=== PATIENT | female | born 1955 | race Caucasian/White ===

== ENCOUNTER 2019-06-10 07:50 | Outpatient (CLI) | payer BC, SELFPAY ==
--- NOTE | ~2019-06-10 | MM_ITS ---
EXAMINATION: MM scrn claribel implant BI w kunal HISTORY: Screening mammogram TECHNIQUE: Craniocaudal and mediolateral oblique 3-D tomosynthesis images with implant displacement a nd synthetic 2-D images were generated. Craniocaudal and mediolateral oblique views of the breasts wi thout implant displacement were obtained using full field digital mammography. CAD analysis was submi tted and interpreted. COMPARISON: 02/05/2016, 01/24/2012, 02/10/2009 BREAST PARENCHYMAL COMPOSITION: The breasts are almost entirely fatty. FINDINGS: There is no evidence of suspicious mass, calcification, or architectural distortion to sugg est malignancy in either breast. There has been no suspicious interval change. IMPRESSION: 1. No mammographic evidence of malignancy. 2. Recommend routine screening mammography in one year. BI-RADS Category 1: Negative Reviewed, dictated and finalized at location A.
--- NOTE | ~2019-06-10 | DEXA_ITS ---
BMD(1) Young-Adult(2) Age-Matched(3) Region (g/cm2) T-score Z-score WHO Classification L1 1.436 2.4 3.4 Normal L2 1.461 2.1 3.0 Normal L3 1.399 1.5 2.4 Normal L4 1.375 1.2 2.2 Normal L1-L4 1.412 1.8 2.7 Normal L2-L4 1.406 1.5 2.5 Normal Trend: L2-L4 Change vs Change vs Measured Age BMD(1) Baseline Previous Date (years) (g/cm2) (%) (%) 06/10/2019 [age] 1.406 baseline - 1 - Statistically 68% of repeat scans fall within 1SD (+- 0.010 g/cm2 for AP Spine L2-L4) 2 - [place] (Combined NHANES (ages 20-30) / Access [place] (ages 20-40)) AP Spine Reference Population (v112) 3 - Matched for Age, Weight (females 25-100 kg), Ethnic 11 - World Health Organization - Definition of Osteoporosis and Osteopenia for Women: Normal = T-score at or above -1.0 SD; Osteopenia = T-score between -1.0 and -2.5 SD; Osteoporosis = T-score at or below -2.5 SD; (WHO definitions only apply when a young healthy Women reference database is used to determine T-scores.) Printed: 06/10/2019 11:15:23 AM (13.60)76:3.00:50.00:12.0 0.00:10.08 0.60x1.05 24.1:%Fat=48.7% 0.00:0.00 0.00:0.00 Filename: [id number] Scan Mode: Standard;OneScan 37.0 [employer] [id number] BMD(1) Young-Adult(2,7) Age-Matched(3) Region (g/cm2) T-score Z-score WHO Classification Neck Left 1.006 -0.2 0.8 Normal Right 1.011 -0.2 0.9 Normal Mean 1.009 -0.2 0.8 Normal Difference 0.005 0.0 0.0 - Total Left 1.003 0.0 0.7 Normal Right 1.005 0.0 0.7 Normal Mean 1.004 0.0 0.7 Normal Difference 0.002 0.0 0.0 - Hip Tornado Length Comparison (mm) (Right = 115.5 mm) (Mean = 108.4 mm) (Left = 116.5 mm) Trend: Total Mean Change vs Change vs Measured Age BMD(1) Baseline Previous Date (years) (g/cm2) (%) (%) 06/10/2019 64.0 1.004 baseline - 1 - Statistically 68% of repeat scans fall within 1SD (+- 0.010 g/cm2 for DualFemur Total) 2 - [place] (Combined NHANES (ages 20-30) / Access [place] (ages 20-40)) Femur Reference Population (v112) 3 - Matched for Age, Weight (females 25-100 kg), Ethnic 7 - DualFemur Total T-score difference is 0.0. Asymmetry is None. 11 - World Health Organization - Definition of Osteoporosis and Osteopenia for Women: Normal = T-score at or above -1.0 SD; Osteopenia = T-score between -1.0 and -2.5 SD; Osteoporosis = T-score at or below -2.5 SD; (WHO definitions only apply when a young healthy Women reference database is used to determine T-scores.) Printed: 06/10/2019 11:15:23 AM (13.60); Filename: [id number]; Right Femur; 18.6:%Fat=31.4%; Neck Angle (deg)= 50; Scan Mode: Standard 37.0 uGy; Left Femur; 19.0:%Fat=28.4%; Neck Angle (deg)= 50; Scan Mode: Standard 37.0 uGy CompleteSet [id number] Dear Sharlene Quintana, Your patient Alessandra Mclean completed a BMD test on 06/10/2019 using the CompleteSet DXA System (analysis version: 13.60) manufactured by [employer]. The following summarizes the results of our evaluation. PATIENT BIOGRAPHICAL: Name: Alessandra Mclean Date: 1955 Height: 66.5 in. Gender: Female
== END 2019-06-10 07:51 | disposition home or self-care (01) ==
PROVIDERS: PCP Internal Medicine; Visit Provider Nurse Practitioner Family
DX: Z12.31 Encounter for screening mammogram for malignant neoplasm of breast (principal); Z78.0 Asymptomatic menopausal state; E55.9 Vitamin D deficiency, unspecified
CPT/HCPCS: 77063; 77067; 77080

== ENCOUNTER 2021-09-04 07:14 | Outpatient (CLI) | payer BC, SELFPAY ==
--- NOTE | ~2021-09-04 | MMUS_ITS ---
EXAMINATION: MM diag claribel implant BI w kunal, US breast RT limited HISTORY: Right breast pain TECHNIQUE: Craniocaudal, mediolateral, and mediolateral oblique 3-D tomosynthesis images with implant displacement of the breasts were performed and synthetic 2-D images were generated. Craniocaudal, m ediolateral oblique, and mediolateral views of the breasts without implant displacement were obtained using full field digital mammography. CAD analysis was submitted and interpreted. High resolution li mited right breast ultrasound was performed. COMPARISON: 06/10/2019, 02/05/2016 BREAST PARENCHYMAL COMPOSITION: The breasts are almost entirely fatty. FINDINGS: MAMMOGRAPHIC FINDINGS: There is no suspicious mass, calcification, or architectural distortion in either breast to suggest malignancy. There has been no suspicious interval change. No mammographic correlate is identified for the patient's reported right breast pain ULTRASOUND: There is no evidence of focal abnormal solid or cystic lesion in the vicinity of the patient's right breast pain. There appears to be intracapsular rupture of the right breast implant. IMPRESSION: 1. No specific mammographic or sonographic correlate is identified for the reported palpable abnormal ity of concern. Further evaluation at this time should be based on clinical assessment. Continued fol low-up physical examination is recommended. 2. Recommend routine screening mammography in one year. BI-RADS Category 1: Negative Reviewed, dictated and finalized at location A. IMPRESSION: 1. No specific mammographic or sonographic correlate is identified for the repo rted palpable abnormality of concern. Further evaluation at this time should be based on clinical assessment. Continued follow-up physical examination is yissel mmended. 2. Recommend routine screening mammography in one year. BI-RADS Category 1: Negative
== END 2021-09-04 07:15 | disposition home or self-care (01) ==
PROVIDERS: PCP Internal Medicine; Visit Provider Nurse Practitioner Obstetrics & Gynecology
DX: N63.0 Unspecified lump in unspecified breast (principal); T85.49XA Other mechanical complication of breast prosthesis and implant, initial encounter; N64.4 Mastodynia
CPT/HCPCS: 76642; 77062; 77066; G0279

== ENCOUNTER 2021-09-27 01:30 | Day surgery (SDC) | payer BC, SELFPAY ==
[2021-09-05 14:25] VITALS: BMI 27.2
--- NOTE | 2021-09-26 18:56 | WPDANESEPPF ---
Anes - Initial Pre Proc Eval Procedure: Operation Date: 09/27/21 08:00 Proposed Procedures p Screening Colonoscopy - Ibrahima Champion DO Date/Time: 09/26/21 18:56 Surgeon: Ibrahima Champion DO Pre Op Diagnosis: neoplasm screening Patient Data Age: 66 Gender: F Height: 1.7 m Weight: 79 kg Allergies Allergy/AdvReac Type Severity Reaction Status Date / Time No Known Allergies Allergy Unverified 09/27/21 06:41 Home Medications Medication Instructions Recorded Confirmed Type atorvastatin 40 mg tablet 40 mg PO DAILY 09/05/21 09/27/21 History lisinopril 20 mg tablet 20 mg PO DAILY 09/05/21 09/27/21 History pantoprazole 40 mg tablet,delayed 40 mg PO DAILY 09/05/21 09/27/21 History release venlafaxine 37.5 mg 37.5 mg PO DAILY 09/05/21 09/27/21 History capsule,extended release 24 hr Patient hx anesthesia problems: none Family hx anesthesia problems: none Results Review: All pre-operative results and documents have been reviewed as part of the pre-operative evaluation. [facility] Past Medical History Medical History (Updated 09/26/21 @ 18:56 by Jordy Perez DO) Anxiety GERD (gastroesophageal reflux disease) Hyperlipidemia Hypertension Family History Family History (Updated 07/31/17 @ 09:13 by DOCTOR UNKNOWN) Other Cerebrovascular accident Diabetes mellitus Family history of cardiovascular disease Family history of malignant neoplasm Social History Social History Smoking status: Never smoker Alcohol intake: never Substance use: never Substance use type: does not use Living arrangements: with family Spiritual care concerns: No Anes - Eval Final PreProcedure Day of Procedure 09/26/21 18:56 Patient weight: overweight Heart: regular rate and rhythm Lungs: clear to auscultation Airway: Mallampati scale class II Neurological: alert and oriented Last oral intake: >/= 8 hours ASA classification: II Emergent: no Anesthetic plan: proceed Anesthesia type and monitoring: general GIVS and standard monitoring Results Review: All pre-operative results and documents have been reviewed as part of the pre-operative evaluation. Informed Consent: The patient's anesthetic plan and its attendant risks and benefits were discussed with the patient/family/POA. Questions were solicited and answers provided to the satisfaction of the patient/family/POA.
[2021-09-27 06:42] VITALS: BP 115/64; PULSE 72; RESP 16; TEMP 36.7; O2SAT 98
[2021-09-27] MEDS: LACTATED RINGERS 1,000 ML 150 ML IV CONT (06:43)
--- NOTE | 2021-09-27 07:43 | PM.IMHP ---
H&P: HPI History of Present Illness Date/Time: 09/27/21 07:43 Chief Complaint: screening for colorectal cancer Narrative: this is a 66-year-old woman who presents for colonoscopy. Her last colonoscopy was about 10 years ago. She does not recall that any polyps were removed. She denies any hematochezia or melena. She denies any family history of colon cancer. Review of Systems Review of Systems: All systems reviewed & are unremarkable except as noted in HPI and below Constitutional: Constitutional: Denies chills, Denies fever(s), Denies headache(s) and Denies weight loss Eyes: Eyes: Denies change in vision ENT: Denies dizziness, Denies headache(s), Denies neck mass and Denies throat swelling Cardiovascular: Cardiovascular: Denies chest pain, Denies lightheadedness and Denies dyspnea Respiratory: Respiratory: Denies cough, Denies dyspnea and Denies wheezing Gastrointestinal: Gastrointestinal: Denies abdominal pain, Denies change in bowel habits, Denies nausea and Denies vomiting Genitourinary: Genitourinary: Denies hematuria and Denies dysuria Musculoskeletal: Musculoskeletal: Reports as per HPI Integumentary/Breasts: Skin/Breast: Reports as per HPI Neurologic: Denies dizziness and Denies headache(s) Allergic/Immunologic: Allergic/Immunologic: Denies throat swelling and Denies wheezing [facility] Past Medical History Medical History (Updated 09/27/21 @ 07:44 by Ibrahima Champion DO) Anxiety GERD (gastroesophageal reflux disease) Hyperlipidemia Hypertension Family History Family History (Updated 07/31/17 @ 09:13 by DOCTOR UNKNOWN) Other Cerebrovascular accident Diabetes mellitus Family history of cardiovascular disease Family history of malignant neoplasm Social History Social History Smoking status: Never smoker Alcohol intake: never Substance use: never Substance use type: does not use Living arrangements: with family Spiritual care concerns: No Meds Home Medications and Allergies Home Medications Medication Instructions Recorded Confirmed Type atorvastatin 40 mg tablet 40 mg PO DAILY 09/05/21 09/27/21 History lisinopril 20 mg tablet 20 mg PO DAILY 09/05/21 09/27/21 History pantoprazole 40 mg tablet,delayed 40 mg PO DAILY 09/05/21 09/27/21 History release venlafaxine 37.5 mg 37.5 mg PO DAILY 09/05/21 09/27/21 History capsule,extended release 24 hr Allergies Allergy/AdvReac Type Severity Reaction Status Date / Time No Known Allergies Allergy Unverified 09/27/21 06:41 Vital Signs Vital Signs - 24 hr 09/27/21 06:42 Temperature 36.7 C Pulse Rate 72 Respiratory Rate 16 Blood Pressure 115/64 Pulse Oximetry 98 Oxygen Delivery Room Air Exam Const: General: no acute distress and alert Orientation/consciousness: patient oriented x3 HENMT: Head: normocephalic and atraumatic Ears: hearing grossly normal bilaterally General nose exam: Normal nares present Mouth: Yes Normal oral and palatal mucosa present Eyes: Periorbital: periorbital findings normal Sclera: sclerae normal EOM: EOMs intact bilaterally Neck: Neck: normal visual inspection, no lymphadenopathy and trachea midline Chest: Chest palpation & inspection: normal inspection of the chest Resp: Effort & Inspection: normal respiratory effort Auscultation: clear to auscultation bilaterally Cardio: Jugular venous distension: no JVD Rate: regular rate Rhythm: regular rhythm Heart sounds: S1 normal heart sound present and S2 normal heart sound present Peripheral pulses: Peripheral pulses 2+ throughout GI: Inspection: normal to inspection GI Palp: Yes Soft to palpation, No Tenderness to palpation present (GI), No Guarding due to palpation present (GI) and No Rebound tenderness present Percussion: Yes normal to percussion Auscultation: normal bowel sounds : General: Yes no CVA tenderness Back/Spine/Pelvis: Back: no CVA tenderness Neuro: General: patient oriented x3, no
[2021-09-27 08:13] VITALS: BP 97/60; PULSE 58; RESP 12; O2SAT 99
[2021-09-27 08:23] VITALS: BP 110/83; PULSE 63; RESP 16; O2SAT 99
[2021-09-27 08:33] VITALS: BP 112/70; PULSE 57; RESP 15; O2SAT 99
== END 2021-09-27 08:49 | disposition home or self-care (01) ==
PROVIDERS: PCP Internal Medicine; Visit Provider Surgery
PROC: 0DJD8ZZ Inspection of Lower Intestinal Tract, Via Natural or Artificial Opening Endoscopic (ICD-10-PCS; CPT 45378; principal; 2021-09-27 08:00)
DX: Z12.11 Encounter for screening for malignant neoplasm of colon (principal); K62.1 Rectal polyp; K62.89 Other specified diseases of anus and rectum; F41.9 Anxiety disorder, unspecified; K21.9 Gastro-esophageal reflux disease without esophagitis; I10 Essential (primary) hypertension; E78.5 Hyperlipidemia, unspecified
CPT/HCPCS: 45380; 88305; J2704; J7120

== ENCOUNTER 2022-11-15 15:57 | Emergency (ER) | payer MEDICARE, SELFPAY ==
--- NOTE | ~2022-11-15 | XR_ITS ---
EXAMINATION: XR hand LT min 3V DATE: 11/15/2022 16:43 INDICATION: Left hand pain and multiple lacerations post fall TECHNIQUE: Posteroanterior, oblique and lateral views of the left hand were obtained. COMPARISON: None. FINDINGS: 3 mm ulnar minus variance. Alignment is otherwise normal. Metallic ring obscures portions of the four th proximal phalangeal diaphysis. No fractures. Mild polyarticular osteoarthritis at the distal radio ulnar, triscaphe, first carpometacarpal and multiple interphalangeal joints with distal predominance. Soft tissues are unremarkable. No radiopaque foreign bodies identified. IMPRESSION: 1. 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 No acute osseous abnormality or radi opaque foreign bodies. Reviewed, dictated and finalized at location A. IMPRESSION: 1. 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 No acute osseo us abnormality or radiopaque foreign bodies.
--- NOTE | ~2022-11-15 | CT_ITS ---
EXAMINATION: CT cervical spine wo con DATE: 11/15/2022 16:41 INDICATION: Fall, RIGHT SIDED PAIN RADIATES DOWN RT ARM TECHNIQUE: Computed tomography (CT) of the cervical spine was performed without intravenous contrast. Automated exposure control and iterative reconstruction technique were employed. The dose-length pro duct was 428.68 mGy-cm. COMPARISON: 02/20/2015. FINDINGS: Vertebral Body Alignment: Intact. Minimal reversal of the normal cervical lordosis centered at C5-6. Craniocervical and atlantoaxial alignment: Moderate degenerative change. Alignment intact. Osseous structures/fracture: No evidence of a lytic or blastic process in the visualized spine. No e vidence of acute fracture. Cervical soft tissues: The paraspinal soft tissues planes are maintained. Degenerative changes: Multilevel degenerative disc disease and facet arthropathy. Severe right neural foraminal narrowing at C6-7 secondary to uncovertebral joint hypertrophy. No severe central canal na rrowing. IMPRESSION: No acute fracture or traumatic malalignment in the cervical spine. Reviewed, dictated and finalized at location K.
--- NOTE | ~2022-11-15 | CT_ITS ---
EXAMINATION: CT brain wo con DATE: 11/15/2022 16:40 INDICATION: Fall off single story roof, rt sided pain . TECHNIQUE: Computed tomography (CT) of the head was performed without intravenous contrast. The mA wa s adjusted according to patient size. Iterative reconstruction technique was employed. The dose-lengt h product was 681.00 mGy-cm. COMPARISON: None. FINDINGS: No acute intracranial hemorrhage or extra-axial fluid collection. No hydrocephalus, mass, or herniation. No acute ischemic infarct. Unremarkable dural venous sinus attenuation. No acute osseous abnormality. Right frontal scalp contusion. Small bilateral maxillary retention cysts or polyps, the remaining aerated spaces are clear. Mild atrophy and chronic white matter change. Atherosclerotic intracranial calcification. IMPRESSION: No acute intracranial process. Reviewed, dictated and finalized at location K.
[2022-11-15 16:00] VITALS: BP 130/70; PULSE 65; RESP 18; TEMP 37.1; O2SAT 100
--- NOTE | 2022-11-15 16:01 | ED.FALL ---
HPI - Fall General Chief Complaint: Fall Stated Complaint: Fall/neck pain Time Seen by Provider: 11/15/22 16:01 Source: patient and RN notes reviewed Mode of arrival: ambulatory Limitations: no limitations History of Present Illness HPI Narrative: patient states she was clearing some branches for installation of a satellite dish. She was on the roof and then was getting down off the roof onto the ladder she slipped and fell to the ground onto her left hand then right side. complaint: fall Onset (ago): minute(s) (20) Fall from: from height (distance) (off the roof single story) Fall witnessed: no Place fall occurred: home Loss of consciousness: none Prolonged down time: no Symptoms prior to fall: none Context: tripped/slipped Location of injury: head and neck Location of injury - extremities: Left: hand Severity: moderate Quality: dull and aching Associated symptoms (after fall): neck pain Related Data Home Medications Medication Instructions Recorded Confirmed atorvastatin 40 mg tablet 40 mg PO DAILY 09/05/21 11/15/22 lisinopril 20 mg tablet 20 mg PO DAILY 09/05/21 11/15/22 pantoprazole 40 mg tablet,delayed 40 mg PO DAILY 09/05/21 11/15/22 release venlafaxine 37.5 mg 37.5 mg PO DAILY 09/05/21 11/15/22 capsule,extended release 24 hr Allergies Allergy/AdvReac Type Severity Reaction Status Date / Time No Known Allergies Allergy Unverified 11/15/22 16:14 Review of Systems Review of Systems: All systems reviewed & are unremarkable except as noted in HPI and below ENT: Denies vertigo and Denies dizziness Musculoskeletal: Musculoskeletal: Denies back pain Neurologic: Denies focal weakness, Denies numbness and Denies weakness PMFSH Past Medical History Medical History (Updated 11/15/22 @ 17:04 by Phillip Moya MD) Anxiety GERD (gastroesophageal reflux disease) Hyperlipidemia Hypertension Iron deficiency anemia Family History Family History (Updated 07/31/17 @ 09:13 by DOCTOR UNKNOWN) Other Cerebrovascular accident Diabetes mellitus Family history of cardiovascular disease Family history of malignant neoplasm Social History Social History Smoking status: Never smoker Alcohol intake: never Substance use: never Substance use type: does not use Living arrangements: with family Spiritual care concerns: No Exam Const: General: healthy appearing, no acute distress and alert Nutritional Appearance: well nourished Orientation/consciousness: patient oriented x3 Limitations: no limitations HENMT: Head: contusion right frontal Ears: external ears normal and TM's normal bilaterally Face/Nose/Sinus: Normal external nose present Face and sinus: normal facial exam Mouth: Yes moist mucous membranes Eyes: Conjunctivae: conjunctivae normal Pupils: Equal, round and reactive pupils present EOM: EOMs intact bilaterally Neck: Neck: normal visual inspection Resp: Effort & Inspection: normal respiratory effort Auscultation: clear to auscultation bilaterally Cardio: Rate: regular rate Rhythm: regular rhythm GI: GI Palp: Yes Soft to palpation and No Tenderness to palpation present (GI) Auscultation: normal bowel sounds Skin: General skin exam: normal color and abrasion (right elbow) Neuro: General: patient oriented x3, moves all extremities, no focal motor deficits and CN's II-XI intact bilaterally Speech: normal speech Gait exam (Neuro): Normal gait present Extrem: General: normal exam except as noted and no clubbing, cyanosis or edema Right upper extremity: elbow/forearm normal ROM; no tenderness and no swelling Left upper extremity: hand neuromotor exam normal, neurosensory exam normal and tenderness of the thumb at the thenar eminence, at the MCP joint and at the proximal phalanx Psych: Mental Status: mental status grossly normal Affect: normal affect Attitude: cooperative Course Vital Signs Vital signs:
[2022-11-15 16:57] VITALS: BP 138/72; PULSE 81; RESP 20; O2SAT 100
[2022-11-15 17:20] VITALS: BP 145/74; PULSE 73; RESP 20; TEMP 36.7; O2SAT 99
== END 2022-11-15 17:30 | disposition home or self-care (01) ==
PROVIDERS: Emergency Provider Emergency Medicine; PCP Internal Medicine
DX: S00.03XA Contusion of scalp, initial encounter (principal); S60.222A Contusion of left hand, initial encounter; S16.1XXA Strain of muscle, fascia and tendon at neck level, initial encounter; W13.2XXA Fall from, out of or through roof, initial encounter; I10 Essential (primary) hypertension; E78.5 Hyperlipidemia, unspecified; K21.9 Gastro-esophageal reflux disease without esophagitis; F41.9 Anxiety disorder, unspecified
CPT/HCPCS: 70450; 72125; 73130; 99284; L0150

== ENCOUNTER 2023-01-14 09:33 | Outpatient (CLI) | payer MEDICARE, SELFPAY | END 2023-01-14 09:34 | disposition home or self-care (01) | LOC: CHSLAB 09:43 | PROVIDERS: PCP Internal Medicine; Visit Provider Specialist | DX: C44.311 Basal cell carcinoma of skin of nose (principal) | CPT/HCPCS: 88305 ==

== ENCOUNTER 2024-08-24 12:51 | Outpatient (CLI) | payer MEDICARE, SELFPAY ==
--- NOTE | ~2024-08-24 | MM_ITS ---
EXAMINATION: MM scrn claribel implant BI w kunal HISTORY: Screening mammogram TECHNIQUE: Craniocaudal and mediolateral oblique 3-D tomosynthesis images with implant displacement a nd synthetic 2-D images were generated. Craniocaudal and mediolateral oblique views of the breasts wi thout implant displacement were obtained using full field digital mammography. CAD analysis was submi tted and interpreted. COMPARISON: 06/10/2019 BREAST PARENCHYMAL COMPOSITION: Not dense: There are scattered areas of fibroglandular density. FINDINGS: There is no evidence of suspicious mass, calcification, or architectural distortion to sugg est malignancy in either breast. There has been no suspicious interval change. IMPRESSION: 1. No mammographic evidence of malignancy. 2. Recommend routine screening mammography in one year. BI-RADS Category 1: Negative Reviewed, dictated and finalized at location A.
--- NOTE | ~2024-08-24 | DEXA_ITS ---
Bone Density Report Name: RICHARD ARDON Age: 69 Sex: Female Ethnicity: White Date of : 1955 Indication: postmenopausal; screening for osteoporosis; parental hip fracture; Referring Provider: Jordi Smyth Study: Bone densitometry was performed. Exam Date: August 24, 2024 Accession number: [id number] Bone Density: Region BMD T-score Z-score Classification AP Spine(L1-L4) 1.227 1.6 3.5 Normal Femoral Neck (Left) 0.809 -0.4 1.3 Normal Total Hip (Left) 0.951 0.1 1.4 Normal Femoral Neck (Right) 0.818 -0.3 1.4 Normal Total Hip (Right) 0.942 0.0 1.3 Normal Femoral Neck Mean 0.814 -0.3 1.3 Normal Total Hip Mean 0.946 0.0 1.4 Normal World Health Organization criteria for BMD impression classify patients as: Normal (T-score at or above -1.0), Osteopenia (T-score between -1.0 and -2.5), or Osteoporosis (T-score at or below -2.5). 10-year Fracture Risk: FRAX not reported because: All T-scores for Spine Total, Hip Total, Femoral Neck at or above -1.0 Previous Exams: Region Exam Age BMD T-score BMD Change BMD Change Date g/cm2 vs Baseline vs Previous AP Spine (L1-L4) 08/24/2024 69 1.227 1.6 -0.031 (-2.5%) -0.031 (-2.5%) 06/10/2019 64 1.258 1.9 Total Hip(Left) 08/24/2024 69 0.951 0.1 0.014 (1.5%)# 0.014 (1.5%)# 06/10/2019 64 0.937 0.0 Total Hip(Right) 08/24/2024 69 0.942 0.0 0.003 (0.3%)# 0.003 (0.3%)# 06/10/2019 64 0.939 0.0 *Denotes significance at 95% confidence level, LSC for AP Spine = 0.022 g/cm2, LSC for Total Hip = 0.027 g/cm2 # Denotes dissimilar scan types or analysis methods Clinical Information Provided by Patient: Parent has had a hip fracture Patient maximum height was 67.0 Menopause Age: 52 No regular weight bearing exercise Drinks caffeinated beverages Onset of menses at age 17 Number of children 0 Impression: The patient has normal bone mass. The patient has risk factors, including: parental hip fracture. No significant bone loss was observed. Discussion: BONE DENSITY IS ABOVE THE MINIMUM DESIRABLE LEVEL AT ALL SKELETAL SITES TESTED. This patient?s bone mineral density is above the minimum desirable level (T-score -1.0 or better) at all sites measured. The patient should follow a healthful lifestyle (good nutrition with adequate calcium and vitamin D, and appropriate weight-bearing exercise). Follow-Up: Consider repeating this study in 5 years or sooner if there is some new clinical indication. Reported by: HEENA on 08/24/2024 1:41:00 PM. Reviewed, dictated and finalized at location A.
--- OUTSIDE RECORDS SUMMARY | 2024-08-24 12:56 | XMS_ITS | Clinical Summary ---
Author Organization [facility] [place] Address [address] [place] [address] Phone Care Team Providers Care Is Support Analyst Name Role Phone Joana Esquivel MD Primary Care Provider [phone] Allergies No known active allergies Medications No known medications Active Problems Patient Care Coordination No te Formatting of this note migh t be different from the original. Primary Care: Joana Esquivel MD Referring Provider: Joana Esquivel [address] [place] [address] Other: Problem Noted Date Diagnosed Date TMJ (dislocation of temporomandibular joint) Family History Medical History Relation Name Comments Other Father diabetes Heart Disease Mother Other Mother diabetes Relation Name Status Comments Father Mother Social History Tobacco Use Types Packs/Day Years Used Date Smoking Tobacco: Never Alcohol Use Standard Drinks/Week Comments No 0 (1 standard drink = 0.6 oz pur e alcohol) Comments No Sex and Gender Information Value Date Recorded Sex Assigned at Not on file Legal Sex Female 5:50 AM [employer] Gender Identity Not on file Sexual Orientation Not on file Occupation Industry Job Start Date Job End Date Not on file Not on file Not on file Not on file Last Filed Vital Signs Vital Sign Reading Time Taken Comments Blood Pressure 121/85 07/03/2009 4:54 PM CDT Pulse - - Temperature - - Respiratory Rate - - Oxygen Saturation - - Inhaled Oxygen Concentration - - Weight 78.9 kg (174 lb) 07/03/2009 4:54 PM CDT Height 170.2 cm (5' 7) 07/03/2009 4:54 PM CDT Body Mass Index 27.25 07/03/2009 4:54 PM CDT Plan of Treatment Health Maintenance Due Date Last Done Comments DTAP/TDAP/TD VACCINES (1 - Tdap) 1976 COLORECTAL SCREENING 2002 Colorectal Cancer Screening 2002 FIT-DNA Q 3 years 2002 FIT/FOBT Q 1 year 2002 Flex Sig/CT Colonography Q 5 years 2002 PNEUMOCOCCAL VACCINE 50+ YEA RS (1 of 1 - PCV) 06/09/2007 ZOSTER VACCINE (1 of 2) 06/09/2007 BREAST CANCER SCREENING 07/03/2010 07/04/19 10, 03/07/2009, 02/10/2009 OSTEOPOROSIS SCREENING 2022 INFLUENZA VACCINE (#1) 2023 RSV VACCINE (60+ or ) (1 - 1-dose 75+ series) 2032 Procedures Procedure Name Priority Date/Time Associated Diagnosis Comments MAMMO DIAGNOSTIC UNI LEFT W OR WO CAD Routine 07/03/2009 from Last 3 Months or Most Recently Relevant to Health Maintenance Results * MAMMO DIGITAL DIAG UNI LEFT (07/03/2009) Anatomical Region Laterality Modality Breast Left Other Silva Justice MD MAMMO ORDERABLES Final Result from Last 3 Months or Most Recently Relevant to Health Maintenance Insurance [facility] BLUE ACCESS/TRUE BLUE PPO Care Teams Is Support Analyst Relationship Specialty Start Date End Date Joana Esquivel MD [address] [place] [address] PCP - General 03/27/09
== END 2024-08-24 12:52 | disposition home or self-care (01) ==
PROVIDERS: PCP Internal Medicine; Visit Provider Internal Medicine
DX: Z12.31 Encounter for screening mammogram for malignant neoplasm of breast (principal); Z78.0 Asymptomatic menopausal state
CPT/HCPCS: 77063; 77067; 77080